=== PATIENT | male | born 1955 ===

== ENCOUNTER → 2024-12-11 | Outpatient (CLI) | payer SELFPAY ==
[2024-12-11 18:00] LABS: Red Blood Cells, Urine 0-2 /hpf (0-2); White Blood Cells, Urine 0-2 /hpf (0-5)
== END ==
LOC: LAB 14:00 → LAB SHORT 14:00
PROVIDERS: Urology
DX: R31.0 Gross hematuria (principal)
CPT/HCPCS: 81015